=== PATIENT | male | born 1980 ===

== ENCOUNTER 2021-10-05 08:21 | Emergency (ER) | payer SELFPAY ==
[2021-10-05 08:40] VITALS: BP 149/101
[2021-10-05 09:01] VITALS: PULSE 78
== END 2021-10-05 08:55 | disposition home or self-care (01) ==
LOC: MW.ED 08:21
DX: U07.1 COVID-19 (principal); Z79.899 Other long term (current) drug therapy
CPT/HCPCS: 99283